=== PATIENT | female | born 1985 | race Caucasian/White ===

== ENCOUNTER 2019-01-30 13:57 | Emergency (ER) | payer BC ==
[2019-01-30 14:06] VITALS: BP 114/76
[2019-01-30] MEDS ORDERED: Ondansetron ODT TAB* 4 MG PO ONE (14:18)
--- NOTE | 2019-01-30 14:25 | UC ---
Nausea/Vomiting/Diarrhea HPI - HPI Summary HPI Summary: 33-year-old woman comes in with a chief complaint of nausea and vomiting. Started this morning. Denies any abdominal pain. Patient reports she's had similar episodes intermittently for years without a specific diagnosis. What helps is Zofran. Patient was be in between medical providers and has run out of her Zofran. Patient doubts that she's . Patient had a loose stool this morning. - History of Current Complaint Chief Complaint: UCGI Stated Complaint: VOMITING Time Seen by Provider: 01/30/19 14:11 Hx Last Menstrual Period: 01/08/19 Pain Intensity: 2 - Allergies/Home Medications Allergies/Adverse Reactions: Allergies Allergy/AdvReac Type Severity Reaction Status Date / Time benzyl peroxide Allergy Itching Uncoded 01/30/19 14:06 PMH/Surg Hx/FS Hx/Imm Hx Previously Healthy: Yes - RECURRENT VOMITING - Surgical History Surgical History: Yes Surgery Procedure, Year, and Place: lumpectomy, wisdom teeth removal - Family History Known Family History: Positive: Non-Contributory - Social History Alcohol Use: Rare Substance Use Type: None Smoking Status (MU): Never Smoked Tobacco Review of Systems All Other Systems Reviewed And Are Negative: Yes Constitutional: Positive: Other - SEE HPI Skin: Positive: Negative Eyes: Positive: Negative ENT: Positive: Negative Respiratory: Positive: Negative Cardiovascular: Positive: Negative Gastrointestinal: Positive: Vomiting, Other - SEE HPI Motor: Positive: Negative Neurovascular: Positive: Negative Musculoskeletal: Positive: Negative Neurological: Positive: Negative Psychological: Positive: Negative Is Patient Immunocompromised?: No Physical Exam Triage Information Reviewed: Yes Appearance: No Pain Distress, Well-Nourished, Ill-Appearing - MILD Vital Signs: Initial Vital Signs Temp 97.9 F 01/30/19 13:59 Pulse 76 01/30/19 13:59 Resp 18 01/30/19 13:59 BP 114/76 01/30/19 13:59 Pulse Ox 100 01/30/19 13:59 Vital Signs Reviewed: Yes Eye Exam: Normal Eyes: Positive: Conjunctiva Clear ENT: Positive: Pharynx normal, TMs normal Neck: Positive: Supple Respiratory: Positive: Lungs clear, Normal breath sounds, No respiratory distress Cardiovascular: Positive: RRR Abdomen Description: Positive: Nontender, Soft Bowel Sounds: Positive: Present Musculoskeletal: Positive: Strength Intact, ROM Intact Neurological: Positive: Alert, Muscle Tone Normal Psychological: Positive: Normal Response To Family, Age Appropriate Behavior Skin Exam: Normal Naus/Vom/Diarrhea Course/Dx - Differential Dx/Diagnosis Provider Diagnosis: Persistent recurrent vomiting Condition At Discharge: Stable Discharge ED - Sign-Out/Discharge Documenting (check all that apply): Patient Departure All imaging exams completed and their final reports reviewed: No Studies - Discharge Plan Condition: Stable Disposition: HOME Prescriptions: Ondansetron ODT TAB* [Zofran 4 MG Odt TAB*] 4 mg PO Q6H PRN #10 tab.odt PRN Reason: Nausea/Vomiting Patient Education Materials: Acute Nausea and Vomiting (ED) Referrals: Sha Bliss MD [Primary Care Provider] - Sha Card DO [Doctor of Osteopathy] - Additional Instructions: FOLLOW UP WITH YOUR PRIMARY CARE DOCTOR AND WHARF BUILDER. GET REEVALUATED SOONER IF NOT IMPROVED OR WORSE; PAIN, FEVER, DEHYDRATION, INTRACTABLE VOMITING OR ANY QUESTIONS OR CONCERNS. - Billing Disposition and Condition Condition: STABLE Disposition: Home
== END 2019-01-30 14:41 | disposition home or self-care (01) ==
LOC: UCEAST 13:57
DX: R11.15 Cyclical vomiting syndrome unrelated to migraine (principal); Z88.8 Allergy status to other drugs, medicaments and biological substances
CPT/HCPCS: 84702; 99212; A9270-GY; G0463

== ENCOUNTER 2019-03-08 14:08 | Emergency (ER) | payer BC ==
[2019-03-08 15:02] VITALS: BP 111/72
--- NOTE | 2019-03-08 15:14 | UC ---
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 Negative: Nasal Discharge - Allergies/Home Medications Allergies/Adverse Reactions: Allergies Allergy/AdvReac Type Severity Reaction Status Date / Time benzyl peroxide Allergy Itching Uncoded 01/30/19 14:06 PMH/Surg Hx/FS Hx/Imm Hx Previously Healthy: Yes - Surgical History Surgical History: Yes Surgery Procedure, Year, and Place: lumpectomy, wisdom teeth removal - Family History Known Family History: Positive: None, Non-Contributory - Social History Occupation: Employed Full-time Lives: With Family Alcohol Use: Rare Substance Use Type: None Smoking Status (MU): Never Smoked Tobacco Review of Systems All Other Systems Reviewed And Are Negative: Yes Constitutional: Positive: Fever - subjective, Chills Skin: Positive: Negative Eyes: Positive: Negative ENT: Positive: Sinus Pain/Tenderness Respiratory: Positive: Negative Cardiovascular: Positive: Negative Gastrointestinal: Positive: Negative Genitourinary: Positive: Negative Motor: Positive: Negative Neurovascular: Positive: Negative Musculoskeletal: Positive: Negative Neurological: Positive: Headache Psychological: Positive: Negative Is Patient Immunocompromised?: No Physical Exam Triage Information Reviewed: Yes Appearance: Well-Appearing, Well-Nourished, Ill-Appearing - mild Vital Signs: Initial Vital Signs Temp 99.5 F 03/08/19 14:56 Pulse 82 03/08/19 14:56 Resp 16 03/08/19 14:56 BP 111/72 03/08/19 14:56 Pulse Ox 100 03/08/19 14:56 Vital Signs Reviewed: Yes Eye Exam: Normal Eyes: Positive: Conjunctiva Clear ENT Exam: Normal ENT: Positive: Normal ENT inspection, Hearing grossly normal, Pharynx normal, TMs normal, Sinus tenderness, Uvula midline. Negative: Nasal congestion, Tonsillar swelling, Trismus, Muffled voice, Hoarse voice, Dental tenderness Dental Exam: Normal Neck exam: Normal Neck: Positive: Supple, Nontender, No Lymphadenopathy Respiratory Exam: Normal Respiratory: Positive: Chest non-tender, Lungs clear, Normal breath sounds, No respiratory distress, No accessory muscle use Cardiovascular Exam: Normal Cardiovascular: Positive: RRR, No Murmur, Pulses Normal, Brisk Capillary Refill Musculoskeletal Exam: Normal Musculoskeletal: Positive: Strength Intact, ROM Intact, No Edema Neurological Exam: Normal Neurological: Positive: Alert, Muscle Tone Normal Psychological Exam: Normal Skin Exam: Normal Diagnostics - Laboratory Lab Results: influenza a/b (-) Throat Pain/Nasal Course/Dx - Course Course Of Treatment: continue sudafed and ibuprofen add flonase--may start a/b in 5-7 days if symptoms continue or sooner if symptoms worsen - Differential Dx/Diagnosis Provider Diagnosis: Sinusitis Discharge ED - Sign-Out/Discharge Documenting (check all that apply): Patient Departure All imaging exams completed and their final reports reviewed: No Studies - Discharge Plan Condition: Stable Disposition: HOME Prescriptions: Amoxicillin/Clavulanate TAB* [Augmentin TAB 875*] 875 mg PO BID #20 tab Fluticasone NASAL SPRAY 50MCG* [Flonase NASAL SPRAY 50MCG*] 2 spray BOTH NARES DAILY #1 btl Patient Education Materials: Sinusitis (ED), How to Use Nasal [place] (ED) Referrals: Sha Bliss MD [Primary Care Provider] - If Needed Additional Instructions: This illness is likely viral--please wait 5-7 days before starting the antibiotics or sooner if symptoms worsen - Billing Disposition and Condition Condition: STABLE Disposition: Home
[2019-03-08 15:30] LABS: Influenza A Molecular NEGATIVE (Negative); Influenza B Molecular NEGATIVE (Negative)
== END 2019-03-08 15:42 | disposition home or self-care (01) ==
LOC: UCEAST 14:08
DX: J32.9 Chronic sinusitis, unspecified (principal); R50.9 Fever, unspecified; Z88.8 Allergy status to other drugs, medicaments and biological substances
CPT/HCPCS: 99201; G0463

== ENCOUNTER 2021-11-07 10:10 | Inpatient (IN) ==
[2021-11-07] MEDS ORDERED: Dinoprostone 10 MG VAG.SUPP VAGINAL ONE (10:49)
[2021-11-07 11:24] LABS: Urine Benzodiazepine Screen None Detected (None Detect); Urine Cannabinoids Screen None Detected (None Detect); Urine Opiates Screen None Detected (None Detect)
[2021-11-08 00:16] LABS: ABS Basophils 0.1 10^3/ul (0-0.2); ABS Eosinophils 0.1 10^3/ul (0-0.6); ABS Lymphocytes 3.1 10^3/ul (1.0-4.8); ABS Monocytes 1.5 10^3/ul (0-0.8); ABS Neutrophils 7.2 10^3/ul (1.5-7.7); Eosinophil % 0.8 %; Hematocrit 35 % (35-47); Hemoglobin 11.2 g/dL (12.0-16.0); Lymphocyte % 25.9 %; Mean Corpuscular HGB Conc 32 g/dL (31-36); Mean Corpuscular Hemoglobin 27 pg (27-31); Mean Corpuscular Volume 84 fL (80-97); Mean Platelet Volume 10.7 fL (7.4-10.4); Nucleated Red Blood Cells % 0.1; Platelet Count 228 10^3/uL (150-450); Red Blood Count 4.16 10^6 /uL (3.70-4.87); Red Cell Distribution Width 15 % (10-15)
[2021-11-08] MEDS ORDERED: OBEPIDURAL (200 ML) 200 ML EPIDURAL ONE (00:41)
[2021-11-08] MEDS ORDERED: Lidocaine 1.5% EPI 1:200,000 30 ML SDV ONE (00:51)
[2021-11-08 00:53] LABS: ALT 13 U/L (7-52); Albumin 3.4 g/dL (3.2-5.2); Albumin/Globulin Ratio 1.2 (1-3); Alkaline Phosphatase 252 U/L (35-149); Blood Urea Nitrogen 13 mg/dL (6-24); CO2 Carbon Dioxide 20 mmol/L (22-32); Calcium 8.9 mg/dL (8.6-10.3); Chloride 105 mmol/L (101-111); Globulin 2.9 g/dL (2-4); Glucose 91 mg/dL (70-100); Sodium 132 mmol/L (135-145); Total Protein 6.3 g/dL (6.4-8.9); eGFR CKD-EPI 102.5 (>60)
[2021-11-08 01:08] LABS: Anion Gap 7 mmol/L (2-11)
[2021-11-08] MEDS ORDERED: Phenylephrine 40 mcg/mL 10mL (400mcg) SYRINGE ONE (01:12)
[2021-11-08] MEDS ORDERED: Lactated Ringers 1000 ml BAG 1,000 ML IV ONE (01:15)
[2021-11-08] MEDS ORDERED: Phenylephrine 40 mcg/mL 10mL (400mcg) SYRINGE IV PUSH PRN ×2 (01:15)
[2021-11-08] MEDS ORDERED: Sodium Citrate/Citric Acid LIQ 15 ML UDC PO PRN (01:15)
[2021-11-08] MEDS ORDERED: OBEPIDURAL (200 ML) 200 ML EPIDURAL SCH (02:00)
[2021-11-08] MEDS ORDERED: Lactated Ringers 1000 ml BAG 1,000 ML IV SCH ×2 (02:00→05:00)
[2021-11-08] MEDS ORDERED: Bupivacaine 0.25% SDV PF 10 ML VIAL INJ ONE (03:13)
[2021-11-08 03:36] LABS: Urine Appearance Clear; Urine Bilirubin Negative (Negative); Urine Blood 1+ (Negative); Urine Color Yellow; Urine Glucose Negative (Negative); Urine Ketones Negative (Negative); Urine Nitrite Negative (Negative); Urine Protein Negative (Negative); Urine Specific Gravity 1.013 (1.002-1.030); Urine Urobilinogen Negative (Negative)
[2021-11-08 03:39] LABS: Urine Bacteria Absent (Absent); Urine Red Blood Cell Trace(0-2/hpf) (Absent); Urine White Blood Cell Trace(0-5/hpf) (Absent)
[2021-11-08] MEDS ORDERED: Oxytocin in LR 20,000 MILLI.UNIT/1,000 ML BAG IV ONE (03:54)
[2021-11-08] MEDS ORDERED: Witch Hazel PAD JAR TOPICAL PRN (04:54)
[2021-11-08] MEDS ORDERED: Dibucaine 1% OINT 28.35 GM TUBE PR PRN (04:54)
[2021-11-08] MEDS ORDERED: Oxytocin in LR 20,000 MILLI.UNIT/1,000 ML BAG IV SCH (05:00)
[2021-11-08] MEDS ORDERED: Lidocaine 1% VIAL 10 MG/ML VIAL ONE (12:18)
[2021-11-09 06:26] LABS: ABS Eosinophils 0.2 10^3/ul (0-0.6); ABS Lymphocytes 2.5 10^3/ul (1.0-4.8); ABS Monocytes 1.1 10^3/ul (0-0.8); ABS Neutrophils 9.5 10^3/ul (1.5-7.7); Eosinophil % 1.2 %; Hematocrit 28 % (35-47); Hemoglobin 9.2 g/dL (12.0-16.0); Lymphocyte % 18.8 %; Mean Corpuscular HGB Conc 33 g/dL (31-36); Mean Corpuscular Hemoglobin 28 pg (27-31); Mean Corpuscular Volume 84 fL (80-97); Mean Platelet Volume 9.6 fL (7.4-10.4); Platelet Count 176 10^3/uL (150-450); Red Blood Count 3.35 10^6 /uL (3.70-4.87); Red Cell Distribution Width 15 % (10-15); White Blood Count 13.3 10^3/uL (3.5-10.8)
[2021-11-10 09:18] VITALS: BP 120/73
== END 2021-11-10 11:25 | disposition home or self-care (01) | DRG 560 ==
LOC: MCHOBOUT 10:10 → MCHOB 10:36
PROVIDERS: ADMIT Midwife; ATTEND Midwife